=== PATIENT | female | born 1955 | race Caucasian/White ===

== ENCOUNTER → 2016-10-07 | Outpatient (CLI) | payer MEDICARE, BC ==
[~2016-10-07] MED LIST: ARTHRITIS PAIN650 M1 PO; ASPIRIN 81MG TA81 MG PO; BIAXIN 500MG T500 MG PO; BUSPIRONE15 MG PO; CELECOXIB200 MG PO; CRANBERRY400 MG PO; CYMBALTA30 MG PO; CYMBALTA60 MG PO; FLAGYL500 MG PO; HYDROCHLOROTH12.5 M1 PO; IBU-8800 MG PO; LEVAQUIN500 MG PO; LORTAB 5/500 501 TAB PO; MEDROL 4MG. DOSE4 MG PO; METAMUCIL MUL0.52 GM PO; NEURONTIN100 MG PO; PREVACID30 MG PO; PROVENTIL0.09 MG/AC IH; SILVADENE CREA400 GM EX; TOPAMAX50 MG PO; ZESTRIL 10MG TA10 MG PO
--- NOTE | 2016-10-07 20:11 | RADIOLOGY REPORT PS360 ---
PROCEDURE: 2-D M-mode and color Doppler study INDICATIONS FOR THE TEST: Chest pain X COPD Heart Murmur Tobacco Smoking Palpitations Fatigue Syncope EdemaX HypertensionXDiabetes Mellitus Rheumatic Fever SOBXDOE ObesityXHyperlipidemia Family History HD Additional History PATIENT INFORMATION HEIGHT: 67 WEIGHT:270 GENDER: Female B/P:145/75 2-D/M-MODE INTERPRETATION: 2-D MEASUREMENTS OBSERVED VALUES IN CMS Right Ventricular Dimension (RVDd) 2.0 Interventricular Septum (Thickness)(IVsd) 1.2 Left Ventricular Internal Dimensions(LVIDd) 5.4 Left Ventricular Posterior Wall (Thickness)(LVPWd) 1.0 Aortic Root 3.2 Aortic Cusp Separation 2.1 Left Atrial Dimensions (LAD) 3.2 2D 1. Left atrium is qualitatively mildly enlarged, left ventricle is normal size, there is mild qualitative concentric left ventricular hypertrophy present, visually estimated ejection fraction 55% with no obvious regional wall motion abnormality. 2. The right atrium and right ventricle are normal size and contractility. 3. The aortic valve is minimally thickened and fibrosed. 4. The mitral and tricuspid valvular minimally thickened. 5. The pulmonic valve is not well visualized. 6. No significant pericardial effusion noted. DOPPLER INTERROGATION: Doppler interrogation of the aortic mitral and tricuspid valvular presence of mild mitral and tricuspid regurgitation, tricuspid regurgitant jet velocity insufficient for calculation of the right ventricular systolic pressure, grade 1 diastolic dysfunction seen without tissue Doppler evidence of raised left atrial pressure. CONCLUSION: 1. Mildly enlarged left atrium, normal left ventricular size, mild concentric left ventricular hypertrophy, visually estimated ejection fraction 55% with no obvious regional wall motion abnormality, grade 1 diastolic dysfunction seen without tissue Doppler evidence of raised left atrial pressure. 2. Mild mitral and tricuspid regurgitation. 3. No significant pericardial effusion noted.
--- NOTE | 2016-10-10 16:08 | RADIOLOGY REPORT PS360 ---
History and Indications: Hypertension, family history, chest pain, shortness of breath, palpitations and fatigue Procedure: Patient received 0.4 mg of Lexiscan, resting heart rate was 80, resting blood pressure 148/68, with Lexiscan maximum heart rate achieved was 94 bpm which is less than 85% of the maximum predicted heart rate and a blood pressure was 126/54. With Lexiscan patient complained of shortness of breath. Electrocardiogram: Resting electrocardiogram showed the sinus rhythm atrial abnormality poor R wave progression, with Lexiscan there is less than 1.[address] segment depression from the baseline EKG. The EKG portion of the Lexiscan Myoview is nondiagnostic. Cardiac stress and resting SPECT images: Cardiac stress and the suspect images were obtained using technetium 99 Myoview 9.9 mCi at rest and 30.2 mCi at stress, gated SPECT further analysis of segmental wall motion and calculation of the ejection fraction also done. Cardiac stress and the rest images show a mild fixed defect in the anterior wall with normal contractility in the gated SPECT is likely secondary to soft tissue attenuation from the breast, no reversible ischemia seen. Computer derived ejection fraction is over 65% with no obvious regional wall motion abnormality, right ventricle is mildly enlarged with normal contractility. Conclusion: 1. The EKG portion of the Lexiscan is nondiagnostic. 2. No obvious scintigraphic evidence of reversible ischemia seen, computer derived ejection fraction is over 65% with no obvious regional wall motion abnormality, right ventricle is mildly enlarged with normal contractility.
== END ==
LOC: RAD 06:35
DX: R07.9 Chest pain, unspecified (principal); R00.0 Tachycardia, unspecified; E78.5 Hyperlipidemia, unspecified
CPT/HCPCS: A9502; J2785

== ENCOUNTER 2017-01-21 22:18 | Emergency (ER) | payer MEDICARE, BC ==
[~2017-01-21] VITALS: Ht 170.2 cm; Wt 119.8 kg
[2017-01-21] MEDS ORDERED: VITAMIN D1000 IU PO (22:31)
--- NOTE | 2017-01-21 22:33 | Emergency Room Report ---
History of Present Illness Time Seen by 2226 Presenting Problem in Triage Pt arrived:Walked Presenting Problem:MIDSTERNAL CHEST PAIN RADIATING TO LEFT SIDE OF CHEST AND NECK. 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 N Clinical Suspician of Infection? N Mental Status: 1 - Regular (Normal Baseline) Sepsis Risk:Low Sepsis Risk Have you (or family members/close friends) recently traveled outside the [place]? N If Yes, where/when: Have you had exposure to infectious disease within the past month? N TB? Other? Specify: Comment Patient complains of chest pain. She describes a couple of different types of discomfort. She is having intermittent sharp stabbing type pains that take her breath away and she is feeling a fluttering intermittently as well. She has had some nausea with dry heaves, but no vomiting. The pain radiates up to the LEFT side of her neck. She does not have cough or fever. She denies abdominal pain. She has had previous episodes that are somewhat similar, but not identical. She has been seen in the emergency department before. She says that she believes she was last here in September. She sees Dr. Paulson about every 6 months. She does not have any known cardiac disease. She has a history of cardiac disease in her father and son. ALLERGIES Coded Allergies: No Known Allergies (04/13/15) Home Medications Reported Medications DULOXETINE HCL (Cymbalta 60MG) 60 MG PO DAILY #1 Lansoprazole (Prevacid) 30 MG PO DAILY #1 Buspirone Hcl (Buspirone HCl) 15 MG PO BID ASPIRIN (Aspirin) 81 MG PO DAILY CHOLECALCIFEROL (VITAMIN D3) (Vitamin D3) 5,000 IUNITS PO DAILY History Medical History General CAD? No Angina: Yes PA: No Hypertension? Yes Hyperlipidemia? No CHF? No DVT? No PE? No COPD? No Asthma? No Anemia? No GERD? No Gastric ulcers? No GI Bleed? No Hernia? No Thyroid Problems? No Hypothyroidism? No CVA? No Seizures? No Diabetes? No Renal Insuffiency? No End Stage Renal Disease? No UTI? No Stones? No BPH? No GB Disease: No Nephritic Syndrome? No Asplenia? No Hepatitis? No Sickle Cell Disease? No Arthritis? No Migraines? No Cataracts? No Glaucoma? No MRSA? No HIV? No TB? No Anxiety? No Depression? No Cancer? No More? No Immunization Hx DT/Tetanus Unknown Flu Refused Pneumonia Refuses Surgical Hx Previous Surgery?Y HYSTERECYTOMY TUBAL LIGATION COLONOSCOPY EXCISIONAL BIOPSY [facility] Family History Family Hx Diabetes No CAD No Hypertension No Hyperlipidemia No Cancer Yes TB No Social History Smoking Hx Smoker: Never Smoker Tobacco: No Are you/the child exposed to second-hand smoke: Yes Alcohol Alcohol: No Additionial History Additional History Lexiscan stress test 10/10/16, no obvious evidence of reversible ischemia. Lexiscan stress test 04/14/15, no obvious evidence of reversible ischemia. Echocardiogram 10/07/16, mildly enlarged LEFT atrium, mild left ventricular hypertrophy, mild mitral and tricuspid regurgitation. Review of Systems All Other Systems Reviewed and Negative Constitutional denies diaphoresis, denies fever Respiratory denies cough, shortness of breath Cardiovascular chest pain, edema (chronic edema of feet) Gastrointestinal nausea, denies vomiting Musculoskeletal neck pain Physical Exam Vital Signs Vital Signs Date Time Temp Pulse Resp B/P Pulse O2 O2 Flow FiO2 Ox Delivery Rate 01/21 2346 98.0 75 20 146/81 96 01/21 2344 98.0 75 20 146/81 96 01/21 2222 98.0 82 20 159/90 97 General Appearance no apparent distress Eye Exam - bilateral eye normal exam, bilateral eye PERRL, bilateral eye EOMI Ear, Nose, Throat hearing grossly normal, normal ENT inspection Neck normal inspection, non-tender, supple, full range of motion Respiratory Status Yes: trachea midline, chest symmetrical, non tender chest. No: respiratory distress. Lung Sounds bilateral: normal breath sounds, lungs clear. Cardiovascular normal exam, regular rate/rhythm, no peripheral edema, no gallop, no JVD, no murmur, no rub, normal peripheral pulses Peripheral Pulses Pulses normal Yes Gastrointestinal normal bowel sounds, normal exam, non tender, soft, no organomegaly Extremities non-tender, no calf tenderness Neurologic alert, normal exam, oriented x 3 Mental status normal mood/affect Skin intact, normal color, warm/dry Medical Decision Making LABS/Meds/Orders Pt receiving controlled substance in ED? No Results/Orders Laboratory Tests 01/21/172229: Sodium 140, Potassium 3.7, Chloride 103, Carbon Dioxide 29, BUN 17, Creatinine 0.9, Estimated Creat Clear 124, Estimated GFR (MDRD) 64, Glucose 88, Calcium 8.8 , Total Bilirubin 0.2, AST 21, ALT 34, Alkaline Phosphatase 122 H, Creatine Kinase 76, CK-MB (CK-2) Rel Index 0.7, CK and CKMB Interp < 0.5, Troponin I 0.02 , Total Protein 7.8, Albumin 3.6, Globulin 4.2 H, Albumin/Globulin Ratio 0.9 L , D-Dimer 120, WBC 9.2, RBC 4.70, Hgb 13.5, Hct 42.2, MCV 89.9, RDW 12.8, Plt Count 337, MPV 7.1 L, Gran % 61.9, Gran # 5.7, Lymphocytes % 31.7, Monocytes % 4.3, Eosinophils % 1.6, Basophils % 0.5, Lymphocytes # 2.9, Monocytes # 0.4, Eosinophils # 0.2, Basophils # 0.1, PUBS MCHC 32.0, MCH 28.8 Current Medication Orders Sig/Zeke Start time Last Medication Dose Route Stop Time Status Admin Aspirin 325 MG ONCE ONE 01/21 2245 DC 01/21 PO 01/21 Sodium Chloride 10 ML PRN PRN 01/21 2245 DCD IV 01/23 2232 Aspirin 0 .STK-MED ONE 01/21 2227 DC .ROUTE Aspirin 0 .STK-MED ONE 01/21 2225 DC .ROUTE Orders Procedure Date/time Status D-DIMER 01/22 2248 Complete CHEST-PORTABLE 01/21 2233 Active IV SALINE LOCK 01/21 2233 Active MANAGER THERAPY 01/21 2233 Active CBC WITH AUTO DIFF 01/21 2233 Complete CARDIAC ENZYMES 01/21 2233 Complete CHEM 12 PROFILE 01/21 2233 Complete ELECTROCARDIOGRAM REQUEST 01/21 2227 Active CM/EKG CM/EKG Comments EKG interpreted by David Farley MD: Rhythm: sinus Rate: 80 [place]: normal Ectopy: none Conduction: normal ST Segment Changes: none T Wave Changes: none Q Waves: none No evidence of acute ischemia or injury Prior electrocardiagrams reviewed. No change from prior tracings. XRAY/CT/US XRAY/CT/US XRAY chest Comment Chest x-ray interpreted by David Farley M.D. No infiltrate, pneumothorax, pleural effusion, or wide mediastinum. Progress - 11:20 PM: Discussed results with patient. The patient wants to be discharged home. I recommended a second set of cardiac enzymes 2-3 hours after the first. I explained the reasoning for this and that one set of enzymes is not sufficient to rule out non-ST elevation myocardial infarction. I explained the importance of this. She declines to stay for a second set of enzymes and would like to be discharged home. 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 Departure Departure Disposition DC Home or Self Care(routine) Clinical Impression Primary Impression: Atypical chest pain Condition STABLE Referrals Martín Timmons MD (Family) Patient Instructions DI for Atypical Chest Pain Additional Instructions Additional instructions for CHEST PAIN: See your physician as soon as possible for further evaluation. Return immediately if worsening chest pain, vomiting, shortness of breath, fever, coughing of blood. ED Critical Care Critical Care No at [id number]
--- OUTSIDE RECORDS SUMMARY | 2017-01-21 22:36 | External Medical Summary Rpt ---
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 Name Role Phone EMERALD, (REF) PCP [phone] Encounter [facility] Date(s): 11/01/16 - 12/26/16 [facility] [address] [place] [address]- [phone] Discharge Disposition: OP Self Care or Home Attending Physician: CHRIS GARCIA, DPM-POD Admitting Physician: CHRIS GARCIA, DPM-POD Referring Physician: CHRIS GARCIA, DPM-POD Reason for Visit M72.2,M66.879,M79.672 Vital Signs No data available for this section Problem List Condition Effective Status Health Informant Dates Status Anxiety(Conf Active irmed) CAD - Active Coronary artery disease(Conf irmed)1 Depression(C Active onfirmed) edema(Confir Active med) GERD Active (gastroesoph ageal reflux disease)(Con firmed) Hypertension Active (Confirmed) Myocardial Active infarction(C onfirmed) Sleep Active apnea(Confir med) 1With prior [place] Allergies, Adverse Reactions, Alerts No Known Allergies Medications aspirin (aspirin 81 mg oral tablet) 1 Tablet(s) Oral Every Day. busPIRone (busPIRone 15 mg oral tablet) 1.5 Tablet(s) Oral Every Day. DULoxetine 30 Milligram(s) Oral Every Day. hydrochlorothiazide 12.5 Milligram(s) Oral Every Day. lansoprazole (Prevacid 15 mg oral delayed release capsule)1 Capsule(s) Oral Every Day. lisinopril (lisinopril 20 mg oral tablet) 1 Tablet(s) Oral Every Day. Results No data available for this section Immunizations No data available for this section Procedures No data available for this section Social History Social History Response Type Smoking Status Never smoker Assessment and Plan No data available for this section Hospital Discharge Instructions No data available for this section
--- OUTSIDE RECORDS SUMMARY | 2017-01-21 22:36 | External Medical Summary Rpt ---
Author Author [facility] Organization [facility] Address Unknown Phone Unavailable Care Team Providers Care Restaurant And Bar Manager Name Role Phone EMERALD, (REF) PCP [phone] Encounter [facility] Date(s): 11/01/16 - 12/26/16 [facility] [address] [place] [address]- [phone] Discharge Disposition: OP Self Care or Home [...] onfirmed) Sleep Active apnea(Confir med) 1With prior [place] Allergies, Adverse Reactions, Alerts No Known Allergies [...]
--- OUTSIDE RECORDS SUMMARY | 2017-01-21 22:38 | External Medical Summary Rpt | CCD ---
Demographics Preferred Language Maltese Marital Status Unknown Druze Affiliation Unknown Race Unknown Ethnic Group Unknown Author Author , ALYSSA SHAH Address Unknown Phone Immunization Unable to retrieve immunization data due to connection failure with Immunization Registry. Please try again later.
--- OUTSIDE RECORDS SUMMARY | 2017-01-21 22:38 | External Medical Summary Rpt | CCD ---
Author Author , ALYSSA SHAH Address Unknown Phone Care Team Providers Care Care Aide Name Role Phone Latisha PERALTA, Unavailable Unavailable Latisha Zee GRAPHITE DISK ASSEMBLER, Unavailable Unavailable Nichole Zee GRAPHITE DISK ASSEMBLER Purpose Continuity of Care Document - 02-05-2013 through 2016 Problems Code Diagnosis DOS Provider Status 276.8 Hypokalemia [facility] [id number] Depression [facility] 558.9 Colitis [facility] Allergies, Adverse Reactions, Alerts Type Allergy to substance Adverse Reaction to Substance Substance Reaction Severity NO KNOWN ALLERGIES Unknown Unknown Medications Na ND Rx Da Fi Fi Am Da Di Ph RX Ph St me C No te ll ll ou ys ag ar # ys at rm s nt no ma ic us Or Da si cy ia de te s n re d PA 11 0 No TI -1 EN 5- Lo T' 20 ng S 13 er OW N Ac HO ti ME ve ME DS Le 00 11 0 No vo 90 -1 fl 46 5- Lo ox 25 20 ng ac 06 13 er in 1 Ac 50 ti 0M ve G Ta bl et Me 51 11 0 No tr 07 -1 on 90 5- Lo id 12 20 ng az 62 13 er ol 0 e Ac 50 ti 0M ve G Ta bl et Po 00 11 1 No ta 24 -1 ss 50 4- Lo iu 05 20 ng m 80 13 er Ch 1 lo Ac ri ti de ve 20 ME Q Ta bl e PA 11 1 No TI -1 EN 4- Lo T' 20 ng S 13 er OW N Ac HO ti ME ve ME DS BE 58 11 0 No NT 91 -1 YL 40 3- Lo 08 20 ng 10 05 13 er 2 MG Ac /M ti L ve AM PU L PA 11 1 No TI -1 EN 3- Lo T' 20 ng S 13 er OW N Ac HO ti ME ve ME DS MA 00 11 2 No PA 90 -1 P 41 3- Lo 32 98 20 ng 5 26 13 er MG 1 Ac TA ti BL ve ET Ib 62 11 2 No up 58 -1 ro 40 3- Lo fe 74 20 ng n 70 13 er 60 1 0M Ac G ti Ta ve bl et PA 51 11 2 No NT 07 -1 OP 90 3- Lo RA 05 20 ng ZO 12 13 er LE 0 Ac SO ti D ve DR 40 MG TA B LE 50 11 3 No VA 45 -1 QU 80 2- Lo IN 16 20 ng -D 80 13 er 5W 1 Ac 50 ti 0 ve MG /1 00 ML BA G ME 00 11 3 No TR 40 -1 ON 97 2- Lo ID 81 20 ng AZ 12 13 er OL 4 E Ac 50 ti 0 ve MG /1 00 ML SO 00 11 0 No DI 40 -1 UM 97 2- Lo 98 20 ng CH 30 13 er LO 9 RI Ac DE ti ve 0. 9% SO MATTHEW TI ON Sa 63 11 1 No li 80 -1 ne 70 2- Lo 10 20 ng Fl 07 13 er us 5 h Ac 10 ti ML ve Sy ri ng e ON 00 11 0 No DA 64 -1 NS 16 2- Lo ET 08 20 ng RO 02 13 er N 5 HC Ac L ti 4 ve MG /2 ML AL MS 00 11 0 No OM 64 -1 ET 11 2- Lo BROWNING 49 20 ng ZI 53 13 er NE 5 Ac 25 ti ve MG /M L AM PU L BE 58 11 0 No NT 91 -1 YL 40 2- Lo 08 20 ng 10 05 13 er 2 MG Ac /M ti L ve AM PU L MA 00 11 1 No PA 90 -1 P 41 2- Lo 32 98 20 ng 5 26 13 er MG 1 Ac TA ti BL ve ET LO 51 11 1 No PE 07 -1 RA 90 2- Lo OH 69 20 ng DE 02 13 er 2 0 Ac MG ti ve CA PS UL E Ga 68 11 3 No ba 08 -1 pe 40 2- Lo nt 08 20 ng in 00 13 er 1 30 Ac 0M ti G ve Ca ps ul e Vital Signs 02-08-2013 15:55 Name Value Interpretat Reference Comment ion Range Body 98.7 [degF] Temperature BP 77 mm[Hg] Diastolic BP Systolic 123 mm[Hg] Heart 89 /min Rate/Pulse Respiratory 18 /min Rate 02-08-2013 08:00 Name Value Interpretat Reference Comment ion Range O2% 97 % 02-05-2013 12:07 Name Value Interpretat Reference Comment ion Range Height 170.18 cm Weight 103.420 kg Measured 02-05-2013 08:13 Name Value Interpretat Reference Comment ion Range Body 98.7 [degF] Temperature BP 79 mm[Hg] Diastolic BP Systolic 133 mm[Hg] Heart 83 /min Rate/Pulse O2% 95 % Respiratory 20 /min Rate Weight 0 [oz_av] Measured Results Labs Lab Lab Date Result Refere Interp Status Commen Order Detail nces retati t Range on BASIC METABOLIC PANEL (02-08-2013 06:45) Glucose 02-08-2 91 74-106 complet 013 mg/dL ed Bld-mCn 06:45 c BUN 02-08-2 7 mg/dL 7-18 complet Bld-mCn 013 ed c 06:45 Creat 02-08-2 0.7 0.6-1.0 complet SerPl-m 013 mg/dL ed Cnc 06:45 ESTIMAT 02-08-2 145 50-200 complet ED 013 ML/MIN ed CREATIN 06:45 INE CLEARAN CE GFR 02-08-2 86 59- complet (ESTIMA 013 ML/MIN ed ANDREW) 06:45 Sodium 02-08-2 143 136-145 complet SerPl-s 013 mmoL/L ed Cnc 06:45 Potassi 02-08-2 3.7 3.5-5.1 complet um 013 mmoL/L ed SerPl-s 06:45 Cnc Chlorid 02-08-2 112 98-107 complet e 013 mmoL/L ed SerPl-s 06:45 Cnc CO2 02-08-2 19 21.0-32 complet SerPl-s 013 mmoL/L .0 ed Cnc 06:45 Calcium 15-2 7.6 8.5-10. complet 013 mg/dL 1 ed SerPl-m 06:45 Cnc CBC with AUTO DIFF (02-08-2013 06:45) WBC # 11-15-2 12.2 4.8-10. complet Bld 013 K/MM3 8 ed Auto 06:45 RBC # 11-15-2 4.11 4.2-5.4 complet Bld 013 M/mm3 ed Auto 06:45 Hgb -15-2 12.4 12.2-16 complet Bld-mCn 013 g/dL .2 ed c 06:45 Hct Fr 11-15-2 37.1 % 37.0-47 complet Bld 013 .0 ed 06:45 MCV RBC 11-15-2 90.2 fl 82.2-97 complet 013 .8 ed 06:45 MCH RBC 11-15-2 30.1 pg 27-31.2 complet Qn 013 ed Auto 06:45 MEAN 11-15-2 33.4 31.8-35 complet CORPUSC 013 g/dl .4 ed ULAR 06:45 HGB CONC RDW RBC 11-15-2 14.3 % 11.5-17 complet Auto 013 .5 ed 06:45 Platele 11-15-2 289 142-424 complet t Bld 013 K/mm3 ed Ql 06:45 Manual MEAN 11-15-2 7.1 fl 7.4-10. complet PLATELE 013 4 ed T 06:45 VOLUME Granulo 11-15-2 74.9 % 37.0-80 complet cytes 013 .0 ed Fr Bld 06:45 Auto LYMPH % 11-15-2 20.3 % 10-50.0 complet 013 ed 06:45 Monocyt 11-15-2 3.6 % 1.7-9.3 complet es Fr 013 ed Bld 06:45 Auto Eosinop 11-15-2 0.8 % 0.1-12. complet hil Fr 013 0 ed Bld 06:45 Auto Basophi 11-15-2 0.3 % 0.1-2.0 complet ls Fr 013 ed Bld 06:45 Auto Granulo 11-15-2 9.1 1.8-7.8 complet cytes # 013 K/mm3 ed Bld 06:45 Auto Lymphoc 11-15-2 2.5 0.7-4.5 complet ytes Fr 013 K/mm3 ed Bld 06:45 Auto Monocyt 11-15-2 0.4 0.1-1.0 complet es # 013 K/mm3 ed Bld 06:45 Auto Eosinop 11-15-2 0.1 0.0-0.4 complet hil # 013 K/mm3 ed Bld 06:45 Auto Basophi 11-15-2 0.0 0-0.2 complet ls # 013 K/MM3 ed Bld 06:45 Auto BASIC METABOLIC PANEL (02-07-2013 06:30) Glucose 11-14-2 101 74-106 complet 013 mg/dL ed Bld-mCn 06:30 c BUN 11-14-2 7 mg/dL 7-18 complet Bld-mCn 013 ed c 06:30 Creat 11-14-2 0.8 0.6-1.0 complet SerPl-m 013 mg/dL ed Cnc 06:30 ESTIMAT 11-14-2 127 50-200 complet ED 013 ML/MIN ed CREATIN 06:30 INE CLEARAN CE GFR -14-2 74 59- complet (ESTIMA 013 ML/MIN ed ANDREW) 06:30 Sodium 11-14-2 143 136-145 complet SerPl-s 013 mmoL/L ed Cnc 06:30 Potassi 11-14-2 3.2 3.5-5.1 complet um 013 mmoL/L ed SerPl-s 06:30 Cnc Chlorid 1114-2 110 98-107 complet e 013 mmoL/L ed SerPl-s 06:30 Cnc CO2 11-14-2 24 21.0-32 complet SerPl-s 013 mmoL/L .0 ed Cnc 06:30 Calcium 11-14-2 7.6 8.5-10. complet 013 mg/dL 1 ed SerPl-m 06:30 Cnc CBC with AUTO DIFF (02-07-2013 06:30) WBC # 11-14-2 15.2 4.8-10. complet Bld 013 K/MM3 8 ed Auto 06:30 RBC # 11-14-2 4.46 4.2-5.4 complet Bld 013 M/mm3 ed Auto 06:30 Hgb 11-14-2 13.4 12.2-16 complet Bld-mCn 013 g/dL .2 ed c 06:30 Hct Fr 11-14-2 40.5 % 37.0-47 complet Bld 013 .0 ed 06:30 MCV RBC 11-14-2 90.8 fl 82.2-97 complet 013 .8 ed 06:30 MCH RBC 11-14-2 29.9 pg 27-31.2 complet Qn 013 ed Auto 06:30 MEAN 11-14-2 33.0 31.8-35 complet CORPUSC 013 g/dl .4 ed ULAR 06:30 HGB CONC RDW RBC 11-14-2 14.0 % 11.5-17 complet Auto 013 .5 ed 06:30 Platele 11-14-2 304 142-424 complet t Bld 013 K/mm3 ed Ql 06:30 Manual MEAN 11-14-2 6.7 fl 7.4-10. complet PLATELE 013 4 ed T 06:30 VOLUME Granulo 11-14-2 83.7 % 37.0-80 complet cytes 013 .0 ed Fr Bld 06:30 Auto LYMPH % 11-14-2 11.7 % 10-50.0 complet 013 ed 06:30 Monocyt 11-14-2 4.1 % 1.7-9.3 complet es Fr 013 ed Bld 06:30 Auto Eosinop 11-14-2 0.4 % 0.1-12. complet hil Fr 013 0 ed Bld 06:30 Auto Basophi 11-14-2 0.2 % 0.1-2.0 complet ls Fr 013 ed Bld 06:30 Auto Granulo 11-14-2 12.7 1.8-7.8 complet cytes # 013 K/mm3 ed Bld 06:30 Auto Lymphoc 11-14-2 1.8 0.7-4.5 complet ytes Fr 013 K/mm3 ed Bld 06:30 Auto Monocyt 11-14-2 0.6 0.1-1.0 complet es # 013 K/mm3 ed Bld 06:30 Auto Eosinop 11-14-2 0.1 0.0-0.4 complet hil # 013 K/mm3 ed Bld 06:30 Auto Basophi 11-14-2 0.0 0-0.2 complet ls # 013 K/MM3 ed Bld 06:30 Auto BASIC METABOLIC PANEL (02-06-2013 06:10) Glucose -13-2 122 74-106 complet 013 mg/dL ed Bld-mCn 06:10 c BUN 13-2 7 mg/dL 7-18 complet Bld-mCn 013 ed c 06:10 Creat -13-2 0.9 0.6-1.0 complet SerPl-m 013 mg/dL ed Cnc 06:10 ESTIMAT -13-2 113 50-200 complet ED 013 ML/MIN ed CREATIN 06:10 INE CLEARAN CE GFR 02-06-2 65 59- complet (ESTIMA 013 ML/MIN ed ANDREW) 06:10 Sodium 11-13-2 143 136-145 complet SerPl-s 013 mmoL/L ed Cnc 06:10 Potassi 11-13-2 4.0 3.5-5.1 complet um 013 mmoL/L ed SerPl-s 06:10 Cnc Chlorid 11-13-2 108 98-107 complet e 013 mmoL/L ed SerPl-s 06:10 Cnc CO2 11-13-2 26 21.0-32 complet SerPl-s 013 mmoL/L .0 ed Cnc 06:10 Calcium 11-13-2 7.9 8.5-10. complet 013 mg/dL 1 ed SerPl-m 06:10 Cnc CBC with AUTO DIFF (02-06-2013 06:10) WBC # 11-13-2 16.6 4.8-10. complet Bld 013 K/MM3 8 ed Auto 06:10 RBC # 11-13-2 4.76 4.2-5.4 complet Bld 013 M/mm3 ed Auto 06:10 Hgb 11-13-2 14.4 12.2-16 complet Bld-mCn 013 g/dL .2 ed c 06:10 Hct Fr 11-13-2 43.1 % 37.0-47 complet Bld 013 .0 ed 06:10 MCV RBC 11-13-2 90.4 fl 82.2-97 complet 013 .8 ed 06:10 MCH RBC 11-13-2 30.2 pg 27-31.2 complet Qn 013 ed Auto 06:10 MEAN 11-13-2 33.4 31.8-35 complet CORPUSC 013 g/dl .4 ed ULAR 06:10 HGB CONC RDW RBC 11-13-2 14.0 % 11.5-17 complet Auto 013 .5 ed 06:10 Platele 11-13-2 332 142-424 complet t Bld 013 K/mm3 ed Ql 06:10 Manual MEAN 11-13-2 7.0 fl 7.4-10. complet PLATELE 013 4 ed T 06:10 VOLUME Granulo 11-13-2 85.8 % 37.0-80 complet cytes 013 .0 ed Fr Bld 06:10 Auto LYMPH % 11-13-2 10.2 % 10-50.0 complet 013 ed 06:10 Monocyt 11-13-2 3.8 % 1.7-9.3 complet es Fr 013 ed Bld 06:10 Auto Eosinop 11-13-2 0.0 % 0.1-12. complet hil Fr 013 0 ed Bld 06:10 Auto Basophi 11-13-2 0.2 % 0.1-2.0 complet ls Fr 013 ed Bld 06:10 Auto Granulo 11-13-2 14.2 1.8-7.8 complet cytes # 013 K/mm3 ed Bld 06:10 Auto Lymphoc 11-13-2 1.7 0.7-4.5 complet ytes Fr 013 K/mm3 ed Bld 06:10 Auto Monocyt 11-13-2 0.6 0.1-1.0 complet es # 013 K/mm3 ed Bld 06:10 Auto Eosinop 11-13-2 0.0 0.0-0.4 complet hil # 013 K/mm3 ed Bld 06:10 Auto Basophi 11-13-2 0.0 0-0.2 complet ls # 013 K/MM3 ed Bld 06:10 Auto C dif Tox A+B Stl Ql (02-05-2013 17:23) C dif 11-12-2 NOT NOT complet Tox A+B 013 DETECTE DETECTE ed Stl Ql 17:23 D C dif Tox A+B Stl Ql (02-05-2013 14:39) C dif 11-12-2 NOT NOT complet Tox A+B 013 DETECTE DETECTE ed Stl Ql 14:39 D COMPREHENSIVE METABOLIC PANEL (02-05-2013 08:25) Glucose 02-05-2 129 74-106 complet 013 mg/dL ed Bld-mCn 08:25 c BUN -12-2 10 7-18 complet Bld-mCn 013 mg/dL ed c 08:25 Creat 11-12-2 0.8 0.6-1.0 complet SerPl-m 013 mg/dL ed Cnc 08:25 ESTIMAT 11-12-2 128 50-200 complet ED 013 ML/MIN ed CREATIN 08:25 INE CLEARAN CE GFR -12-2 74 59- complet (ESTIMA 013 ML/MIN ed ANDREW) 08:25 Sodium 11-12-2 139 136-145 complet SerPl-s 013 mmoL/L ed Cnc 08:25 Potassi -12-2 3.5 3.5-5.1 complet um 013 mmoL/L ed SerPl-s 08:25 Cnc Chlorid 11-12-2 106 98-107 complet e 013 mmoL/L ed SerPl-s 08:25 Cnc CO2 11-12-2 23 21.0-32 complet SerPl-s 013 mmoL/L .0 ed Cnc 08:25 Calcium 11-12-2 8.5 8.5-10. complet 013 mg/dL 1 ed SerPl-m 08:25 Cnc Prot 11-12-2 7.4 6.4-8.2 complet SerPl-m 013 gm/dL ed Cnc 08:25 Albumin 11-12-2 3.4 3.4-5.0 complet 013 gm/dL ed SerPl-m 08:25 Cnc Globuli 11-12-2 4.0 1.3-3.2 complet n 013 gm/dL ed Ser-mCn 08:25 c Albumin 11-12-2 0.9 UNK 1.1-1.8 complet /Glob 013 ed SerPl-m 08:25 Rto Bilirub 11-12-2 0.3 0.2-1.0 complet 013 mg/dL ed SerPl-m 08:25 Cnc AST 11-12-2 20 U/L 15-37 complet SerPl-c 013 ed Cnc 08:25 ALT 11-12-2 39 U/L 30-65 complet SerPl-c 013 ed Cnc 08:25 ALP 11-12-2 127 U/L 50-136 complet SerPl-c 013 ed Cnc 08:25 Amylase SerPl-cCnc (02-05-2013 08:25) Amylase 11-12-2 31 U/L 25-115 complet 013 ed SerPl-c 08:25 Cnc LIPASE (02-05-2013 08:25) LIPASE 11-12-2 81 U/L 73-393 complet 013 ed 08:25 CBC with AUTO DIFF (02-05-2013 08:25) WBC # 11-12-2 11.7 4.8-10. complet Bld 013 K/MM3 8 ed Auto 08:25 RBC # 11-12-2 4.71 4.2-5.4 complet Bld 013 M/mm3 ed Auto 08:25 Hgb 11-12-2 14.2 12.2-16 complet Bld-mCn 013 g/dL .2 ed c 08:25 Hct Fr 11-12-2 42.1 % 37.0-47 complet Bld 013 .0 ed 08:25 MCV RBC 11-12-2 89.3 fl 82.2-97 complet 013 .8 ed 08:25 MCH RBC 11-12-2 30.2 pg 27-31.2 complet Qn 013 ed Auto 08:25 MEAN 11-12-2 33.8 31.8-35 complet CORPUSC 013 g/dl .4 ed ULAR 08:25 HGB CONC RDW RBC 11-12-2 14.4 % 11.5-17 complet Auto 013 .5 ed 08:25 Platele 11-12-2 347 142-424 complet t Bld 013 K/mm3 ed Ql 08:25 Manual MEAN 11-12-2 6.8 fl 7.4-10. complet PLATELE 013 4 ed T 08:25 VOLUME Granulo 11-12-2 85.8 % 37.0-80 complet cytes 013 .0 ed Fr Bld 08:25 Auto LYMPH % 11-12-2 11.2 % 10-50.0 complet 013 ed 08:25 Monocyt 11-12-2 2.6 % 1.7-9.3 complet es Fr 013 ed Bld 08:25 Auto Eosinop 11-12-2 0.3 % 0.1-12. complet hil Fr 013 0 ed Bld 08:25 Auto Basophi 11-12-2 0.1 % 0.1-2.0 complet ls Fr 013 ed Bld 08:25 Auto Granulo 11-12-2 10.0 1.8-7.8 complet cytes # 013 K/mm3 ed Bld 08:25 Auto Lymphoc 11-12-2 1.3 0.7-4.5 complet ytes Fr 013 K/mm3 ed Bld 08:25 Auto Monocyt 11-12-2 0.3 0.1-1.0 complet es # 013 K/mm3 ed Bld 08:25 Auto Eosinop 11-12-2 0.0 0.0-0.4 complet hil # 013 K/mm3 ed Bld 08:25 Auto Basophi 11-12-2 0.0 0-0.2 complet ls # 013 K/MM3 ed Bld 08:25 Auto URINALYSIS/COMPLETE (02-05-2013 08:14) URINE 11-12-2 YELLOW YELLOW complet COLOR 013 ed 08:14 URINE 11-12-2 CLOUDY CLEAR complet APPEARA 013 ed NCE 08:14 URINE 11-12-2 NEGATIV NEG complet GLUCOSE 013 E ed - 08:14 DIPSTIC K URINE 11-12-2 NEGATIV NEG complet BILIRUB 013 E ed IN - 08:14 DIPSTIC K URINE 11-12-2 NEGATIV NEG complet KETONE 013 E mg/dL ed 08:14 URINE 11-12-2 Greater 1.005-1 complet SPECIFI 013 than .030 ed C 08:14 or GRAVITY equal to 1.030 URINE 11-12-2 1+ NEG complet BLOOD 013 ed 08:14 URINE 11-12-2 6.0 UNK 5.0-8.5 complet PH 013 ed 08:14 URINE 11-12-2 NEGATIV NEG complet PROTEIN 013 E mg/dL ed - 08:14 DIPSTIC K URINE 11-12-2 0.2 NEG complet UROBILI 013 E.U./dL ed NOGEN - 08:14 DIPSTIC K URINE 11-12-2 NEGATIV NEG complet NITRATE 013 E ed - 08:14 DIPSTIC K URINE 11-12-2 NEGATIV NEG complet LEUK 013 E ed ESTERAS 08:14 E URINE 11-12-2 3-5 0 complet RBC 013 rbc/hpf ed 08:14 URINE 11-12-2 OCC O complet WBC 013 wbc/hpf ed 08:14 URINE 11-12-2 10-20 0-5 complet SQUAMOU 013 #/hpf ed S CELLS 08:14 URINE 11-12-2 OCC OCC complet MUCUS 013 ed 08:14 URINE 11-12-2 4+ NONE complet AMORPH 013 ed SEDIMEN 08:14 T OCCULT BLOOD (02-05-2013 08:14) Hemocul 11-12-2 POSITIV NEG complet t sp1 013 E ed Stl Ql 08:14 Encounters Encounter Start End Date Code Location Performer Type Date Inpatient ALEXANDRA [place] ([place] 3 08:40 3 15:40 [facility]
--- OUTSIDE RECORDS SUMMARY | 2017-01-21 22:38 | External Medical Summary Rpt | CCD ---
Author Author , ALYSSA SHAH Address Unknown Phone [email or web address] Care Team Providers Care Special Event Assistant Name Role Phone Latisha PERALTA, Unavailable Unavailable Latisha Zee RN MANAGER, Unavailable Unavailable Nichole Zee RN MANAGER Purpose Continuity of Care Document - 02-05-2013 through 2016 Problems Code Diagnosis DOS Provider Status 276.8 Hypokalemia [facility] [id number] Depression [facility] 558.9 Colitis [facility] Allergies, Adverse Reactions, Alerts Type Allergy to [...] ti 4 ve MG /2 ML AL MO 00 11 0 No OM 64 -1 [...] PE 07 -1 RA 90 2- Lo PA 69 20 ng DE 02 13 er [...] [place] 3 08:40 3 15:40 [facility]
--- OUTSIDE RECORDS SUMMARY | 2017-01-21 22:38 | External Medical Summary Rpt | CCD ---
Demographics Preferred Language Mohawk Marital Status Unknown Catholic Affiliation Unknown Race Unknown Ethnic Group Unknown Author Author , ALYSSA SHAH Address Unknown Phone Immunization Unable to retrieve immunization data due to connection failure with Immunization Registry. Please try again later.
--- OUTSIDE RECORDS SUMMARY | 2017-01-21 22:39 | External Medical Summary Rpt ---
Author Author ALYSSA Abrams, [employer] Organization [employer] Address Unknown Phone Unavailable Results Comprehensive metabolic 2000 panel in Serum or Plasma Observa Value Referen Units Interpr Notes Date tion ce etation Range Albumin/G 1.1 - 1.8 No Low No Sep 21 lobulin informati informati 2016 3:40 [Mass on in on in PM ratio] in source source Serum or data data Plasma Albumin 3.4 - 5.0 gm/dL Normal No Sep 21 [Mass/vol informati 2016 3:40 ume] in on in PM Serum or source Plasma data Alkaline 46 - 116 U/L Normal No Sep 21 phosphata informati 2016 3:40 se on in PM [Enzymati source c data activity/ volume] in Serum or Plasma Bilirubin 0.2 - 1.0 mg/dL Normal No Sep 21 .total informati 2016 3:40 [Mass/vol on in PM ume] in source Serum or data Plasma Urea 7 - 18 mg/dL High No Sep 21 nitrogen informati 2016 3:40 [Mass/vol on in PM ume] in source Serum or data Plasma Calcium 8.5 - mg/dL Normal No Sep 21 [Mass/vol 10.1 informati 2017 3:40 ume] in on in PM Serum or source Plasma data Chloride 98 - 107 mmoL/L Normal No Sep 21 [Moles/vo informati 2016 3:40 lume] in on in PM Serum or source Plasma data Carbon 21.0 - mmoL/L Normal No Sep 21 dioxide, 32.0 informati 2017 3:40 total on in PM [Moles/vo source lume] in data Serum or Plasma Creatinin 0.55 - mg/dL Normal No Sep 21 e 1.02 informati 2017 3:40 [Mass/vol on in PM ume] in source Serum or data Plasma Creatinin 50 - 200 ML/MIN Normal No Sep 21 e renal informati 2017 3:40 clearance on in PM source predicted data by Cockcroft -Gault formula Estimated 59- ML/MIN No REFERENCE Sep 21 informati RANGE: 2017 3:40 glomerula on in >60 PM r source ML/MIN/1. filtratio data 73 SQUARE n rate METERSIf (GF this patient is -A merican, then multiply theresult by 1.210. Globulin 1.3 - 3.2 gm/dL High No Sep 21 [Mass/vol informati 2016 3:40 ume] in on in PM Serum source data Glucose 74 - 106 mg/dL High No Sep 21 [Mass/vol informati 2016 3:40 ume] in on in PM Serum or source Plasma data Potassium 3.5 - 5.1 mmoL/L Normal No Sep 21 inform2016 3:40 [Moles/vo on in PM lume] in source Serum or data Plasma Sodium 136 - 145 mmoL/L Normal No Sep 21 [Moles/vo informati 2016 3:40 lume] in on in PM Serum or source Plasma data Aspartate 15 - 37 U/L Normal No Sep 21 inform2016 3:40 aminotran on in PM sferase source [Enzymati data c activity/ volume] in Serum or Plasma Alanine 12 - 78 U/L Normal No Sep 21 aminotran inform2016 3:40 sferase on in PM [Enzymati source c data activity/ volume] in Serum or Plasma Protein 6.4 - 8.2 gm/dL Normal No Sep 21 [Mass/vol informati 2016 3:40 ume] in on in PM Serum or source Plasma data Free T4 & TSH panel in Serum or Plasma Observa Value Referen Units Interpr Notes Date tion ce etation Range Thyroxine 5.93 - ug/dl Low No Sep 21 (T4) 13.13 informati 2016 3:40 free on in PM index in source Serum or data Plasma Triiodoth 31 - 39 % Normal No Sep 21 yronine inform2016 3:40 (T3) on in PM resin source uptake in data Serum or Plasma Thyroxine 4.7 - ug/dl Normal Sep 21 (T4) 13.3 inform2016 3:40 [Mass/vol on in PM ume] in source Serum or data Plasma Thyrotrop 0.358 - uIU/ml Normal No Sep 21 in 3.740 informati 2016 3:40 [Units/vo on in PM lume] in source Serum or data Plasma Troponin I.cardiac [Mass/volume] in Serum or Plasma Observa Value Referen Units Interpr Notes Date tion ce etation Range Troponin 0.00 - ng/mL Normal No Sep 21 I.cardiac 0.06 informati 2016 3:40 on in PM [Mass/vol source ume] in data Serum or Plasma CBC W Auto Differential panel in Blood Observa Value Referen Units Interpr Notes Date tion ce etation Range Basophils 0 - 0.2 K/MM3 Normal No Sep 21 informati 2016 3:40 [#/volume on in PM ] in source Blood by data Automated count Basophils 0.1 - 2.0 % Normal No Sep 21 /100 informati 2016 3:40 leukocyte on in PM s in source Blood by data Automated count Eosinophi 0.0 - 0.4 K/mm3 Normal No Sep 21 ls informati 2016 3:40 [#/volume on in PM ] in source Blood by data Automated count Eosinophi 0.1 - % Normal No Sep 21 ls/100 12.0 informati 2016 3:40 leukocyte on in PM s in source Blood by data Automated count Granulocy 1.8 - 7.8 K/mm3 Normal No Sep 21 umair informati 2016 3:40 [#/volume on in PM ] in source Blood by data Automated count Granulocy 37.0 - % Normal No Sep 21 umair/100 80.0 informati 2016 3:40 leukocyte on in PM s in source Blood by data Automated count Hematocri 37.0 - % Normal No Sep 21 t [Volume 47.0 informati 2016 3:40 on in PM Fraction] source of Blood data Hemoglobi 12.2 - g/dL Normal No Sep 21 n 16.2 informati 2016 3:40 [Mass/vol on in PM ume] in source Blood data Lymphocyt 0.7 - 4.5 K/mm3 Normal No Sep 21 es informati 2016 3:40 [#/volume on in PM ] in source Unspecifi data ed specimen by Automated count Lymphocyt 10 - 50.0 % Normal No Sep 21 es informati 2016 3:40 [#/volume on in PM ] in source Unspecifi data ed specimen by Automated count Erythrocy 27 - 31.2 pg Normal No Sep 21 te mean informati 2016 3:40 corpuscul on in PM ar source hemoglobi data n [Entitic mass] Erythrocy 31.8 - g/dl Normal No Sep 21 te mean 35.4 informati 2016 3:40 corpuscul on in PM ar source hemoglobi data n concentra tion [Mass/vol ume] by Automated count Erythrocy 82.2 - fl Normal No Sep 21 te mean 97.8 informati 2016 3:40 corpuscul on in PM ar volume source [Entitic data volume] by Automated count Monocytes 0.1 - 1.0 K/mm3 Normal No Sep 21 informati 2016 3:40 [#/volume on in PM ] in source Blood by data Automated count Monocytes 1.7 - 9.3 % Normal No Sep 21 /100 informati 2016 3:40 leukocyte on in PM s in source Blood by data Automated count Platelet 7.4 - fl Low No Sep 21 mean 10.4 informati 2016 3:40 volume on in PM [Entitic source volume] data in Blood by Automated count Platelets 142 - 424 K/mm3 No No Sep 21 informati informati 2016 3:40 [#/volume on in on in PM ] in source source Blood data data Erythrocy 4.2 - 5.4 M/mm3 Normal No Sep 21 umair informati 2016 3:40 [#/volume on in PM ] in source Amniotic data fluid Erythrocy 11.5 - % Normal No Sep 21 te 17.5 informati 2016 3:40 distribut on in PM ion width source [Entitic data volume] by Automated count Leukocyte 4.8 - K/MM3 Normal No Sep 21 s 10.8 informati 2016 3:40 [#/volume on in PM ] in source Blood data
[2017-01-21 22:40] LABS: HEMOGLOBIN 13.5 g/dL (12.2-16.2); LYMPH # 2.9 K/mm3 (0.7-4.5); LYMPH % 31.7 % (10-50.0)
[2017-01-21 23:09] LABS: BUN 17 mg/dL (7-18)
[2017-01-21 23:10] LABS: GFR (ESTIMATED) 64 ML/MIN (59-)
[2017-01-21 23:46] VITALS: BP 146/81
--- NOTE | 2017-01-22 06:57 | RADIOLOGY REPORT PS360 ---
CHEST-PORTABLE HISTORY: Chest pain CP ORDERING PHYSICIAN: David Farley MD PATIENT AGE: 61 years COMPARISON: 09/21/2016 FINDINGS: The cardiomediastinal silhouette and pulmonary vascularity are within normal limits. The lungs are clear without infiltrates, suspicious nodules, or pleural effusions. No acute bony abnormalities. IMPRESSION: Negative chest, no acute finding
== END 2017-01-21 23:46 | disposition home or self-care (01) ==
LOC: ER 22:18
PROVIDERS: Emergency Medicine
DX: R07.89 Other chest pain (principal); I10 Essential (primary) hypertension